=== PATIENT | male | born 1960 | race Caucasian/White ===

== ENCOUNTER → 2019-08-10 | Outpatient (CLI) | payer OTHER ==
[~2019-08-10] MED LIST: ASPIR-LOW81 MG PO; COREG6.25 MG PO; FISH OIL 1,001000 M2 PO; FOLIC ACID1 MG PO; LECITHIN400 MG PO; NORVASC5 MG PO; SUPER B COMPLE150 MG PO; VITAMIN D3400 UNI2 PO; VITAMIN E100 UNIT PO
== END ==
LOC: CAT 11:41
DX: Z13.6 Encounter for screening for cardiovascular disorders (principal); E78.00 Pure hypercholesterolemia, unspecified; I25.10 Atherosclerotic heart disease of native coronary artery without angina pectoris